=== PATIENT | female | born 1955 | race Two or more races ===

== ENCOUNTER → 2024-08-13 | Outpatient (CLI) | payer MEDICARE, MEDICAID, SELFPAY ==
--- NOTE | 2024-08-13 10:35 | XR_ITS ---
Examination: Bilateral os calcis 4 views TECHNIQUE: Axial lateral right and left os calcis 2 views Exam date and time: August 13, 2024 1055 hours INDICATIONS: Bilateral heel pain for years FINDINGS: Moderate osteopenia Soft tissue vascular calcification 7 mm left plantar bony calcaneal spur 4 mm right plantar bony calcaneal spur No cortical bone destruction IMPRESSION: Plantar bony calcaneal spurs as above
--- NOTE | 2024-08-13 10:35 | XR_ITS ---
Examination: Foot bilateral, 6 views Technique: AP, oblique, lateral views each foot total 6 views Date and time of exam: August 13, 2024 1055 hours INDICATIONS: Foot pain for years worse the last year FINDINGS: Moderate osteopenia Mild bunion deformity right foot with moderate osteoarthritis right first metatarsophalangeal joint No fracture Mild bunion deformity left foot with moderate osteoarthritis first metatarsophalangeal joint Please see the bilateral ankle reports No acute fracture no dislocation IMPRESSION: Bilateral mild bunion deformities Bilateral moderate osteoarthritis first metatarsophalangeal joints
--- NOTE | 2024-08-13 10:35 | XR_ITS ---
Examination: Ankle Bilateral, 6 views Technique: AP oblique lateral each ankle total 6 views INDICATIONS: Increasing ankle pain the last 4 years Date and time of exam: August 13, 2024 1055 hours Findings: Moderate osteopenia Moderate osteoarthritis right tibiotalar joint 5 mm plantar 2 mm posterior right bony calcaneal spurs Mild osteoarthritis left tibiotalar joint 7 mm left plantar bony calcaneal spur No fracture or dislocation involving either ankle IMPRESSION: Moderate osteoarthritis right tibiotalar joint Mild osteoarthritis left tibiotalar joint Calcaneal spurs as above
== END | disposition home or self-care (01) ==
LOC: CDIM 10:18
PROVIDERS: PCP Nurse Practitioner Family; Referring Provider Nurse Practitioner Family; Visit Provider Nurse Practitioner Family
DX: M19.072 Primary osteoarthritis, left ankle and foot (principal); M19.071 Primary osteoarthritis, right ankle and foot; M77.32 Calcaneal spur, left foot; M77.31 Calcaneal spur, right foot; M21.612 Bunion of left foot; M21.611 Bunion of right foot
CPT/HCPCS: 73610; 73630; 73650

== ENCOUNTER → 2024-09-17 | Outpatient (CLI) | payer MEDICARE, MEDICAID, SELFPAY ==
--- NOTE | 2024-09-17 11:00 | XR_ITS ---
Examination: Screening digital mammography, bilateral Computer aided detection 3-D breast Tomosynthesis, bilateral Date and time of exam: September 17, 2024 1055 hours Compared to mammograms dating to February 08, 2012 Indication: Screening Technique: Nonmagnified MLO, CC views of the breasts to been obtained, reconstructed from 3-D Tomosynthesis images. R2 computer aided detection program utilized for evaluation of suspicious masses and/or abnormal calcifications. 3-D Tomosynthesis images obtained. Findings: Scattered areas of fibroglandular density Benign calcifications No interval suspicious masses Impression: BI-RADS category II: Benign Findings. Recommend 1 year follow-up mammogram.
== END | disposition home or self-care (01) ==
LOC: CDIM 10:46
PROVIDERS: PCP Nurse Practitioner Family; Referring Provider Internal Medicine; Visit Provider Internal Medicine
DX: R92.323 Mammographic fibroglandular density, bilateral breasts (principal); R92.1 Mammographic calcification found on diagnostic imaging of breast
CPT/HCPCS: 77063; 77067

== ENCOUNTER 2024-10-02 10:48 | Emergency (ER) | payer MEDICARE, MEDICAID, SELFPAY ==
[2024-10-02 10:49] VITALS: BMI 35.9
[2024-10-02 11:00] VITALS: BP 151/79; PULSE 98; RESP 18; TEMP 37.2; O2SAT 97
--- NOTE | 2024-10-02 11:18 | XR_ITS ---
Examination: CTA abdominal aorta iliofemoral runoff. 2-D sagittal coronal reconstructions. 3-D reconstructions, vascular Exam date and time: October 02 2024 1230 hours INDICATIONS: Right lower leg pain paresthesias and numbness beginning 2 weeks ago Technique: Multiple CTA images of the abdominal aorta iliofemoral runoff arterial vessels, 2.0 mm slice thickness, post intravenous administration 130 cc [id number] 2-D sagittal coronal reconstructions. 3-D reconstructions, vascular 3-D postprocessing, including vascular maximum intensity projection images, 3-D volume rendering Low dose protocols were performed. One or more of the following dose reduction techniques were used; automated exposure control, adjustment of the mA and/or KV according to patient size, use of iterative reconstruction technique. Findings: No focal liver or splenic lesions Absent gallbladder No pancreatic or adrenal mass No renal or ureteral calculi, no hydronephrosis No bowel obstruction Normal appendix No diverticulitis Urinary bladder wall thickening up to 2 mm No pelvic mass No abdominal aortic aneurysmal dilatation No significant stenoses common iliac and external iliac or common femoral arteries Bilateral superficial femoral arteries are intact Bilateral posterior tibial arteries fill to the ankle There is no filling of the distal one third of both anterior tibial arteries which may relate to small vessel arterial sclerotic disease IMPRESSION: There is no filling of the distal one third of both anterior tibial arteries, which may relate to obstructive arterial disease Recommend correlation with repeat arterial Doppler sonography lower extremity arteries.
--- NOTE | 2024-10-02 11:19 | PD.EDLOWEX ---
Lower Extremity Injury RME/HPI General Chief Complaint: Extremity Injury, Lower Stated Complaint: Right lower foot/calf pain x 1 mo. Time Seen by Provider: 10/02/24 11:05 Arrival date/time: 10/02/24 10:48 RME / HPI RME / HPI Narrative: 69-year-old female patient Swiss-speaking, with significant history of fibromyalgia, came in for evaluation regarding right lower leg pain. Patient has been having pain to the right lower leg for more than a month, worse in the foot, with dusky discoloration, severity moderate. Patient was previously seen in this hospital about a year ago for chronic foot ulcer. The wound is completely healed now. Patient denies any fever denies any trauma denies any other complaints no medication was taken prior travel. Related Data Home Medications ?Medication ?Instructions ?Recorded ?Confirmed furosemide 20 mg tablet mg 08/06/23 metformin 500 mg tablet mg 08/06/23 Previous Rx's ?Medication ?Instructions ?Recorded duloxetine 60 mg capsule,delayed 60 mg PO QDAY #30 caps 08/07/23 release hydrocodone 5 mg-acetaminophen 325 1 tab PO Q8H PRN pain #10 tabs 08/07/23 mg tablet acetaminophen 300 mg-codeine 30 mg 1 tab PO BID PRN pain #20 tabs 10/02/24 tablet cilostazol 100 mg tablet 100 mg PO BID #60 tabs 10/02/24 Allergies Allergy/AdvReac Type Severity Reaction Status Date / Time No Known Allergies Allergy Verified 07/01/21 11:43 Review of Systems Review of Systems Narrative Review of Systems: Review of system reviewed and within normal limits except mentioned in HPI ED Exam Narrative Physical exam: VITAL SIGNS: Reviewed. GENERAL APPEARANCE: Alert and interactive, follows commands, no acute distress, HEAD AND FACE: Non-traumatic. ENT: PERRL, pink conjunctivitis, eyelid no trauma, Mucous membrane moist. NECK: Supple, nontender, no nuchal rigidity. CHEST: No tenderness, no crepitus, no paradoxical movement, no retractions. LUNGS: Clear, well ventilated, symmetric, no rales, no wheezing, no ronchi, no stridor, good breath sounds bilaterally. HEART: Regular rate, regular rhythm, no murmur, no gallops. ABDOMEN: Soft, positive bowel sounds, nondistended, no guarding, nontender, no rebound, no masses, RECTAL: Deferred. GENITAL: Deferred. NEUROLOGICAL: Gross motor function intact sensory function intact, Appropriate for age. MUSCULOSKELETAL: low back nontender, full range of motion. EXTREMITIES: Right bilateral foot with dusky discoloration more on the plantar aspect, warm to touch, dorsalis pedis and posterior tibialis pulses barely palpable with tenderness, full range of motion. SKIN: Color pink, dry, no rash, no lacerations, no abrasions, no contusions. LYMPHATICS: Deferred. Course Quality Measures none Orders Category Date Time Status CT Screening NOW Care 10/02/24 11:19 Active IV [Insert IV] NOW Care 10/02/24 11:[address] angio abd ilio fem runoff Stat Exams 10/02/24 11:18 Completed CBC Stat Lab 10/02/24 11:43 Completed Comprehensive Metabolic Panel Stat Lab 10/02/24 11:43 Completed Partial Thromboplastin Time Stat Lab 10/02/24 11:43 Completed Prothrombin Time with INR Stat Lab 10/02/24 11:43 Completed Urinalysis, C/S if Indicated Stat Lab 10/02/24 12:28 Completed Ketorolac Inj [Toradol Inj] Med 10/02/24 14:23 Discontinued 30 mg IVP X1 ONE Vital Signs Vital signs: Vital Signs Temperature 98.9 F 10/02/24 11:00 Pulse Rate 98 10/02/24 11:00 Respiratory Rate 18 10/02/24 11:00 Blood Pressure 151/79 H 10/02/24 11:00 Pulse Oximetry (%) 97 10/02/24 11:00 Oxygen Delivery Method Room Air 10/02/24 11:00 Extremity Injury, Lower MDM Narrative MDM Narrative:: 69-year-old female patient Swiss-speaking, with significant history of fibromyalgia, came in for evaluation regarding right lower leg pain. Patient has been having pain to the right lower leg for more than a month, worse in the foot, with dusky discoloration, severity moderate. Patient was previously seen in this hospital about a year ago for chronic foot ulcer. The wound is completely healed now. Patient denies any fever denies any trauma denies any other complaints no medication was taken prior travel. Patient's workup today all came back unremarkable except for the CT angiogram with iliofemoral runoff that showed There is no filling of the distal one third of both anterior tibial arteries, which may relate to obstructive arterial disease Recommend correlation with repeat arterial Doppler sonography lower extremity arteries. Results discussed with the patient and family and was given a copy of her CT angiogram of the abdomen and pelvis. Patient was strongly advised to follow-up with PCP in the morning and for referral to vascular surgeon for further management. There is no need to do emergency room. Since patient has been having symptoms for more than a month. And patient is not having acute gangrene or cyanosis of the foot or lower extremities. Patient data External records reviewed:: None Clinical information provided by:: patient Social determinants that could affect healthcare access:: none Patient has the following chronic illnesses:: Fibromyalgia How is presenting disease/condition affected by chronic disease/condition?: exacerbated by Evaluation data The following diagnostics were reviewed and interpreted by me:: lab results and radiology exam(s) Lab and/or radiology exams considered but not ordered:: None Interpretation Summary: See results in MDM Medications / Prescriptions Medications or Prescriptions considered but not ordered:: None Medication administrations:: Medication Administration History Discontinued Medications Ketorolac Tromethamine (Ketorolac Inj 30 Mg/Ml Vial) 30 mg IVP X1 ONE Stop: 10/02/24 14:24 Toradol Iv Consultations Consultation(s) initiated? (list below): No Diagnosis Extremity Injury, Lower Differential Diagnosis: other (Peripheral arterial disease, peripheral arterial occlusive disease, Raynaud's disease) Most likely diagnosis given after review of the tests above:: Peripheral arterial occlusive disease Admission Indicated Admission indicated?: not indicated Explain why admission is indicated or not indicated:: Stable Admission Request Was there a request for admission?: No Disposition Plan Disposition Plan: Discharge Discharge Attestation Discharge Attestation: The patient and all family members were given an opportunity to ask questions and understood the discharge instructions. Discharge instructions specifically effects, indications for sooner follow up or return to the emergency department, and the expected course of current diagnosis. Patient condition: Stable Discharge Plan Plan Patient Disposition: HOME (Self Care) Disposition Comment: Stable Prescriptions/Referrals Prescriptions/Med Rec: New cilostazol 100 mg tablet 100 mg PO BID Qty: 60 0RF acetaminophen-codeine 300-30 mg tablet 1 tab PO BID PRN (Reason: pain) Qty: 20 0RF No Action metformin 500 mg tablet Patient Comments: JOCELYNE EVANS VECES AL D A furosemide 20 mg tablet duloxetine 60 mg Capsule,Delayed Release(Dr/Ec) 60 mg PO QDAY Qty: 30 0RF hydrocodone-acetaminophen 5-325 mg tablet 1 tab PO Q8H MDD 3 tabs PRN (Reason: pain) Qty: 10 0RF Referrals: Diana Bullard [employer]ILITY RENTAL CLERK [Primary Care Provider] - In 1 week Problem List Clinical Impression: PAOD (peripheral arterial occlusive disease) Patient/Caregiver Discharge Instructions Discharge Activity: activity as tolerated Education Materials: PAD Cilostazol Additional Instructions: Thank you for the opportunity for serving you today. You are stable for discharged . You are advised to: Follow-up with your PCP in 1 to 2 days and as per referral to vascular surgeon Return to ED for worsening of symptoms Increase oral fluids Take medication as prescribed Print Language: Swiss Stand Alone Forms: Alise Award Info., Patient Portal Info Letter PA/OVERHEAD CRANE OPERATOR Supervising Physician PA/DESMOND Supervising Physician: MD Tip
[2024-10-02 12:05] LABS: Basophils # (Auto) 0.1 Thou/mm3 (0.0-0.2); Basophils % (Auto) 1 % (0-2.5); Eosinophils # (Auto) 0.1 Thou/mm3 (0.0-0.5); Eosinophils % (Auto) 1 % (0-10); Hematocrit 42.8 % (36.0-46.0); Hemoglobin 14.2 g/dL (12.0-16.0); Immature Granulocytes % (Auto) 0 % (0-0); Immature Granulocytes Auto 0.03 Thou/mm3 (0.00-0.00); Lymphocytes # (Auto) 3.2 Thou/mm3 (1.0-4.8); Lymphocytes % (Auto) 31 % (10-50); Mean Corpuscular HGB Conc 33.2 g/dl (31.0-37.0); Mean Corpuscular Hemoglobin 30.7 pg (25.0-35.0); Mean Corpuscular Volume 92 fL (80-100); Monocytes # (Auto) 0.7 Thou/mm3 (0.0-0.8); Monocytes % (Auto) 6 % (0-12); Neutrophils # (Auto) 6.3 Thou/mm3 (1.8-7.7); Neutrophils % (Auto) 61 % (37-80); Nucleated Red Blood Cell % 0 /100 WBC (0); Platelet Count 389 Thou/mm3 (140-440); RDW Standard Deviation 53.2 fL (36.4-46.3); Red Blood Count 4.63 Miln/mm3 (4.00-5.20); White Blood Count 10.4 Thou/mm3 (3.6-11.0)
[2024-10-02 12:24] LABS: Alanine Aminotransferase 28 U/L (10-49); Albumin, Serum 4.4 gm/dL (3.4-4.8); Albumin/Globulin Ratio 1.8 (1.2-2.2); Alkaline Phosphatase 79 U/L (46-116); Anion Gap 7 (7-16); Aspartate Amino Transferase 27 U/L (0-34); BUN/Creatinine Ratio 17 Ratio (12-20); Bilirubin,Total 0.3 mg/dL (0.3-1.2); Blood Urea Nitrogen 10 mg/dL (9-23); Calcium 9.3 mg/dL (8.3-10.6); Calcium (Corrected) 9.3 mg/dL (8.5-10.1); Chloride 103 mMol/L (98-107); Creatinine (Component) 0.6 mg/dL (0.6-1.3); Estimated Creatinine Clearance 85.7 mL/min (>60); Globulin 2.5 gm/dL (2.3-3.5); Glucose 160 mg/dL (74-106); Osmolality,Calculated 281 (275-295); Potassium 3.8 mMol/L (3.4-5.1); Sodium 140 mMol/L (136-145); Total Protein 6.9 gm/dL (5.7-8.2); eGFR > 60 See Note
[2024-10-02 12:33] LABS: Collection Type, Urine Clean Catch
[2024-10-02 12:43] LABS: Partial Thromboplastin Time 26.2 Seconds (22.0-36.0)
[2024-10-02 12:44] LABS: Bilirubin,Urine Negative (Negative); Blood,Urine Negative (Negative); Clarity,Urine Clear (Clear/Hazy); Color,Urine Lt-Yellow (Lt Yel-Yel); Culture Indicated,Urine Not Indicated; Glucose, Urine Negative (Negative); Ketones,Urine Negative (Negative); Leukocyte Esterase,Urine Negative (Negative); Nitrite,Urine Negative (Negative); Protein,Urine Negative (Neg - Trace); RBC,Urine 2 /hpf (0-3); Specific Gravity,Urine 1.006 (1.001-1.035); Squamous Epithelial Cell,Urine 2 /hpf (0-5); Urobilinogen,Urine Negative mg/dL (0.0-1.0); WBC,Urine 1 /hpf (0-5)
[2024-10-02] MEDS: KETOROLAC INJ 30 MG/ML VIAL IVP (14:35)
== END 2024-10-02 15:06 | disposition home or self-care (01) ==
PROVIDERS: Nurse Practitioner Family; Emergency Provider Emergency Medicine; PCP Nurse Practitioner Family
DX: I73.9 Peripheral vascular disease, unspecified (principal)
CPT/HCPCS: 36415; 75635; 80053; 81001; 85025; 85610; 85730; 96374; 99285; A4649; J1885; Q9967

== ENCOUNTER → 2024-10-03 | Outpatient (CLI) | payer MEDICARE, MEDICAID, SELFPAY ==
--- NOTE | 2024-10-03 13:12 | XR_ITS ---
Examination: Venous duplex lower extremity sonogram, bilateral. Date and time of exam: October 03, 2024 1403 hours INDICATIONS: Bilateral leg pain beginning one year ago Technique: Multiple sonographic images of the deep venous system have been obtained. B-mode/2-D grayscale imaging of vascular structures and Doppler spectral analysis (waveforms) and color performed Both legs are examined. Findings: Deep venous systems do not demonstrate abnormal echogenicity. All visualized deep veins exhibit compressibility. All visualized deep veins exhibit augmentation. Impression: Negative for deep vein thrombosis
--- NOTE | 2024-10-03 13:18 | XR_ITS ---
Examination: Arterial duplex lower extremity study. Date and time of exam: October 13, 2024 1347 hours INDICATIONS: Bilateral leg pain beginning one year ago Findings: Duplex sonographic imaging of the lower extremity arteries using B-mode/Martines scale imaging and Doppler spectral analysis and color flow. Ankle brachial indices have been recorded. Right common femoral artery demonstrates triphasic flow. Right superficial femoral artery demonstrates triphasic flow. Right popliteal artery demonstrates triphasic flow. Right posterior tibial artery demonstrated triphasic flow. Right ankle/brachial index is 1.0. Left common femoral artery demonstrates triphasic flow. Left superficial femoral artery demonstrates triphasic flow. Left popliteal artery demonstrates triphasic flow. Left posterior tibial artery demonstrated biphasic flow. Left ankle/brachial index is 1.0. Impression: Negative study
== END | disposition home or self-care (01) ==
PROVIDERS: PCP Nurse Practitioner Family; Referring Provider Nurse Practitioner Family; Visit Provider Nurse Practitioner Family
DX: R22.43 Localized swelling, mass and lump, lower limb, bilateral (principal); I73.9 Peripheral vascular disease, unspecified
CPT/HCPCS: 93922; 93970

== ENCOUNTER 2024-11-10 10:33 | Emergency (ER) | payer MEDICARE, MEDICAID, SELFPAY ==
[2024-11-10 10:35] VITALS: BMI 35.5
--- NOTE | 2024-11-10 10:55 | XR_ITS ---
Examination: PA lateral chest 2 views TECHNIQUE: Upright PA lateral chest 2 views Exam date and time: November 11, 2019 5:11 AM INDICATIONS: Chest pain beginning 4 days ago FINDINGS: Normal heart size. Lungs are clear. Right shoulder reverse shoulder arthroplasty IMPRESSION: No active disease
--- NOTE | 2024-11-10 10:55 | EKG_ITS ---
[facility] Test Date: 2024-11-10 Pat Name: URBANO RUTHERFORD Department: Room: - Gender: Female Hand Laster: : 1955 Requested By: Mario Morris Order Number: [id number] Reading MD: Mario Morris Measurements Intervals Rhodelia Rate: 57 P: 50 CO: 140 QRS: -20 QRSD: 89 T: 41 QT: 431 QTc: 422 Interpretive Statements SINUS BRADYCARDIA Compared to ECG 04/07/2019 09:26:40 Sinus rhythm no longer present /store/S0/[id number].pdf
--- NOTE | 2024-11-10 10:55 | PD.EDRME ---
Rapid Medical Screening Exam RME Arrival date/time: 11/10/24 10:33 69-year-old female with a history of type 2 diabetes, fibromyalgia presents to the emergency room with a chief complaint of 10 out of 10 sternal chest pain that radiates to the bilateral shoulders x 1 day. I have greeted and performed a focused initial assessment of this patient. A comprehensive ED assessment and evaluation of the patient, analysis of all test results, and completion of the medical decision making process will be conducted by additional ED providers. Chief Complaint: Chest Pain Vital signs reviewed by provider: Yes
[2024-11-10 11:08] VITALS: BP 135/73; PULSE 63; RESP 19; TEMP 37.2; O2SAT 96
[2024-11-10 11:44] LABS: Basophils # (Auto) 0.1 Thou/mm3 (0.0-0.2); Basophils % (Auto) 0 % (0-2.5); Eosinophils # (Auto) 0.2 Thou/mm3 (0.0-0.5); Eosinophils % (Auto) 1 % (0-10); Hemoglobin 13.8 g/dL (12.0-16.0); Immature Granulocytes % (Auto) 0 % (0-0); Immature Granulocytes Auto 0.07 Thou/mm3 (0.00-0.00); Lymphocytes # (Auto) 3.9 Thou/mm3 (1.0-4.8); Lymphocytes % (Auto) 25 % (10-50); Mean Corpuscular HGB Conc 32.1 g/dl (31.0-37.0); Mean Corpuscular Hemoglobin 30.2 pg (25.0-35.0); Mean Corpuscular Volume 94 fL (80-100); Monocytes # (Auto) 1.2 Thou/mm3 (0.0-0.8); Monocytes % (Auto) 8 % (0-12); Neutrophils # (Auto) 10.3 Thou/mm3 (1.8-7.7); Neutrophils % (Auto) 66 % (37-80); Nucleated Red Blood Cell % 0 /100 WBC (0); Platelet Count 396 Thou/mm3 (140-440); RDW Standard Deviation 50.6 fL (36.4-46.3); Red Blood Count 4.57 Miln/mm3 (4.00-5.20); White Blood Count 15.7 Thou/mm3 (3.6-11.0)
[2024-11-10 11:50] LABS: Partial Thromboplastin Time 25.5 Seconds (22.0-36.0); Prothrombin Time 10.9 Seconds (9.0-12.2)
[2024-11-10 11:53] LABS: B-Type Natriuretic Peptide 50 pg/mL (0-100)
[2024-11-10 11:55] LABS: Alanine Aminotransferase 26 U/L (10-49); Albumin, Serum 4.5 gm/dL (3.4-4.8); Alkaline Phosphatase 109 U/L (46-116); Anion Gap 7 (7-16); Aspartate Amino Transferase 26 U/L (0-34); BUN/Creatinine Ratio 27 Ratio (12-20); Bilirubin,Total 0.6 mg/dL (0.3-1.2); Blood Urea Nitrogen 16 mg/dL (9-23); Calcium 9.1 mg/dL (8.3-10.6); Calcium (Corrected) 9.1 mg/dL (8.5-10.1); Carbon Dioxide 30.7 mMol/L (20.0-31.0); Chloride 103 mMol/L (98-107); Creatinine (Component) 0.6 mg/dL (0.6-1.3); Estimated Creatinine Clearance 85.2 mL/min (>60); Globulin 2.3 gm/dL (2.3-3.5); Glucose 86 mg/dL (74-106); LDH (Lactate Dehydrogenase) 221 U/L (120-246); Magnesium 2.1 mg/dL (1.6-2.6); Osmolality,Calculated 281 (275-295); Potassium 3.6 mMol/L (3.4-5.1); Sodium 141 mMol/L (136-145); Total Protein 6.8 gm/dL (5.7-8.2); Troponin I < 0.020 ng/mL (0.0-0.045); eGFR > 60 See Note
[2024-11-10 12:29] LABS: Collection Type, Urine Clean Catch
[2024-11-10 12:49] LABS: Bilirubin,Urine Negative (Negative); Blood,Urine Negative (Negative); Clarity,Urine Clear (Clear/Hazy); Color,Urine Drk-Yellow (Lt Yel-Yel); Glucose, Urine Negative (Negative); Ketones,Urine Trace (Negative); Leukocyte Esterase,Urine Positive (Negative); Nitrite,Urine Negative (Negative); PH,Urine 6.5 (5.0-7.0); Protein,Urine 1+ (Neg - Trace); RBC,Urine 8 /hpf (0-3); Specific Gravity,Urine 1.035 (1.001-1.035); Squamous Epithelial Cell,Urine 2 /hpf (0-5); WBC,Urine 4 /hpf (0-5)
[2024-11-10 16:00] VITALS: BP 129/71; PULSE 54; RESP 20; TEMP 36.6; O2SAT 95
--- NOTE | 2024-11-10 16:32 | PD.EDCHEST ---
ED Chest Pain RME/HPI General Chief Complaint: Chest Pain Stated Complaint: CHEST PAIN Arrival date/time: 11/10/24 10:33 RME / HPI RME / HPI narrative: 11/10/24 10:33 69-year-old female with a history of type 2 diabetes, fibromyalgia presents to the emergency room with a chief complaint of 10 out of 10 sternal chest pain that radiates to the bilateral shoulders x 1 day. I have greeted and performed a focused initial assessment of this patient. A comprehensive ED assessment and evaluation of the patient, analysis of all test results, and completion of the medical decision making process will be conducted by additional ED providers. DR. SCHWARZ MAIN ED EVALUATION: 69 year old female presents to the Emergency Department accompanied by her with complaint of chest pain prior to arrival that lasted 45 minutes. Pain has resolved but now has generalized weakness. Pain radiated to her back and was described as aching. No radiation to the shoulders or arms. Denies any acid reflux. No nausea, vomiting, diarrhea, or constipation. No fevers, chills, or sweating. No shortness of breath. No dysuria or other urinary symptoms. PMHx: Fibromyalgia takes cymbalta and also takes clonazepam to sleep. Denies history of hypertension or diabetes. Social Hx: No tobacco, alcohol, or substance use. Related Data Home Medications ?Medication ?Instructions ?Recorded ?Confirmed furosemide 20 mg tablet mg 08/06/23 metformin 500 mg tablet mg 08/06/23 Previous Rx's ?Medication ?Instructions ?Recorded duloxetine 60 mg capsule,delayed 60 mg PO QDAY #30 caps 08/07/23 release hydrocodone 5 mg-acetaminophen 325 1 tab PO Q8H PRN pain #10 tabs 08/07/23 mg tablet acetaminophen 300 mg-codeine 30 mg 1 tab PO BID PRN pain #20 tabs 10/02/24 tablet cilostazol 100 mg tablet 100 mg PO BID #60 tabs 10/02/24 Allergies Allergy/AdvReac Type Severity Reaction Status Date / Time No Known Allergies Allergy Verified 07/01/21 11:43 Review of Systems Review of Systems Systems Reviewed: All systems reviewed, normal except as documented Past Medical History Past Medical History CARDIAC: Positive Varicose Veins GASTROINTESTINAL: Positive Gastrointestinal Disorders, Gall Bladder Disease and Obesity REPRODUCTIVE: Positive Previous Pregnancies MUSCULOSKELETAL: Positive Musculoskeletal Disorders and Fibromyalgia ENT: Positive Cataracts PSYCHO/SOCIAL: Positive Depression and Anxiety OTHER HISTORY: Positive Shingles Surgical History SURGICAL: Positive Tonsillectomy, Abdominal Surgery, Hysterectomy, Tubal Ligation and Section Social History SMOKING STATUS: Never smoker SUBSTANCE USE: does not use ALCOHOL: Never ED Exam Narrative Physical exam: GENERAL APPEARANCE: alert and oriented x 4, well-developed, well-nourished, no acute distress VITALS: All vitals were reviewed and the pulse ox is 96% on room air, which is normal according to my interpretation. HEENT: Normocephalic, atraumatic; pupils equal, round, reactive to light; EOMI; mucous membranes pink, moist; oropharynx clear NECK: Supple LUNGS: CTABL; no wheezes, no rales, no rhonchi HEART: Regular rate, regular rhythm; normal S1, S2; no murmurs ABDOMEN: non distended; normal BS; soft, no tenderness, no guarding, no rebound; no masses, no organomegaly, no hernia BACK: no CVA tenderness EXTREMITIES: atraumatic; no edema NEUROLOGIC: awake; alert and oriented x4; cranial nerves II-XII grossly intact; no focal sensory or motor deficits PSYCHIATRIC: appropriate mood and affect SKIN: warm, dry, normal color; no rashes Course Quality Measures none Orders Category Date Time Status Bedside COVID-19 Antigen Test NOW Care 11/10/24 12:40 Active Bedside Influenza A&B Antigen Test NOW Care 11/10/24 12:40 Completed EKG (ED ONLY) *Do not use* NOW Care 11/10/24 10:55 Completed EKG (ED Only) Stat Exams 11/10/24 10:55 Draft XR chest 2V Stat Exams 11/10/24 10:55 Completed B-Type Natriuretic Peptide Stat Lab 11/10/24 11:21 Completed CBC Stat Lab 11/10/24 11:21 Completed Comprehensive Metabolic Panel Stat Lab 11/10/24 11:21 Completed LDH (Lactate Dehydrogenase) Stat Lab 11/10/24 11:21 Completed Magnesium Stat Lab 11/10/24 11:21 Completed Partial Thromboplastin Time Stat Lab 11/10/24 11:21 Completed Procalcitonin Stat Lab 11/10/24 11:21 Completed Prothrombin Time with INR Stat Lab 11/10/24 11:21 Completed Troponin I Stat Lab 11/10/24 11:21 Completed Urinalysis Stat Lab 11/10/24 12:17 Completed Vital Signs Vital signs: Vital Signs Temperature 99.0 F 11/10/24 11:08 Pulse Rate 63 11/10/24 11:08 Respiratory Rate 19 11/10/24 11:08 Blood Pressure 135/73 H 11/10/24 11:08 Pulse Oximetry (%) 96 11/10/24 11:08 Oxygen Delivery Method Room Air 11/10/24 11:08 Chest Pain MDM Narrative MDM Narrative:: Ana Byrne am scribing for and in the presence of Dr. Schwarz. Patient data External records reviewed:: [facility] previous records (Reviewed last ED visit dated 10/02/24, discharged with the following: PAOD (peripheral arterial occlusive disease).) Clinical information provided by:: patient and family () Social determinants that could affect healthcare access:: none Patient has the following chronic illnesses:: Fibromyalgia takes cymbalta and also takes clonazepam to sleep. Denies history of hypertension or diabetes. How is presenting disease/condition affected by chronic disease/condition?: exacerbated by Evaluation data The following diagnostics were reviewed and interpreted by me:: lab results, radiology exam(s) and EKG tracing(s) (EKG#1: EKG at 1103 hours. Interpreted by me: sinus bradycardia, rate 57, T wave inversion in V1) Lab and/or radiology exams considered but not ordered:: none Interpretation Summary: Procedure(s): XR chest 2V Accession Number(s): [id number] cc: Mario Antonio; Artis Meier MD~ Examination: PA lateral chest 2 views TECHNIQUE: Upright PA lateral chest 2 views Exam date and time: November 11, 2019 5:11 AM INDICATIONS: Chest pain beginning 4 days ago FINDINGS: Normal heart size. Lungs are clear. Right shoulder reverse shoulder arthroplasty IMPRESSION: No active disease Dictated By: Artis Meier MD Medications / Prescriptions Medications or Prescriptions considered but not ordered:: none Medication administrations:: see above if any Consultations Consultation(s) initiated? (list below): No Diagnosis Chest Pain Differential Diagnosis: atypical chest pain, costochondritis, chest pain and biliary colic Most likely diagnosis given after review of the tests above:: Atypical chest pain Leukocytosis Admission Indicated Admission indicated?: not indicated Admission Request Was there a request for admission?: No Disposition Plan Disposition Plan: Discharge Discharge Attestation Discharge Attestation: The patient and all family members were given an opportunity to ask questions and understood the discharge instructions. Discharge instructions specifically effects, indications for sooner follow up or return to the emergency department, and the expected course of current diagnosis. Patient condition: Stable Discharge Plan Plan Patient Disposition: HOME (Self Care) Prescriptions/Referrals Prescriptions/Med Rec: No Action metformin 500 mg tablet Patient Comments: JOCELYNE KEYESA NATHAN VECES AL D A furosemide 20 mg tablet duloxetine 60 mg Capsule,Delayed Release(Dr/Ec) 60 mg PO QDAY Qty: 30 0RF hydrocodone-acetaminophen 5-325 mg tablet 1 tab PO Q8H MDD 3 tabs PRN (Reason: pain) Qty: 10 0RF cilostazol 100 mg tablet 100 mg PO BID Qty: 60 0RF acetaminophen-codeine 300-30 mg tablet 1 tab PO BID PRN (Reason: pain) Qty: 20 0RF Referrals: Diana Bullard LOCOMOTIVE MECHANIC APPRENTICE [Primary Care Provider] - In 1 week Problem List Clinical Impression: Atypical chest pain, Leukocytosis Patient/Caregiver Discharge Instructions Education Materials: ED Chest Pain, Uncertain Cause Print Language: Lao Stand Alone Forms: Alise Award Info., Patient Portal Info Letter
[2024-11-10 16:47] LABS: Procalcitonin 0.04 ng/ml (0.0-0.49)
[2024-11-10 17:03] VITALS: BP 129/71; PULSE 53; RESP 15; TEMP 36.4; O2SAT 96
== END 2024-11-10 17:44 | disposition home or self-care (01) ==
PROVIDERS: Nurse Practitioner Family; Emergency Provider Emergency Medicine; PCP Nurse Practitioner Family
DX: R07.89 Other chest pain (principal); D72.829 Elevated white blood cell count, unspecified; M79.7 Fibromyalgia; E11.9 Type 2 diabetes mellitus without complications
CPT/HCPCS: 36415; 71046; 80053; 81001; 83615; 83735; 83880; 84145; 84484; 85025; 85610; 85730; 87400; 87811; 93005; 99283

== ENCOUNTER 2025-01-22 20:39 | Emergency (ER) | payer MEDICARE, SELFPAY ==
[2025-01-22 21:29] VITALS: BP 137/78; PULSE 65; RESP 16; TEMP 36.8; O2SAT 95
[2025-01-22] MEDS: GABAPENTIN 300 MG CAPSULE PO (22:06)
[2025-01-22] MEDS: HYDROcodone/APAP 5/325 TABLET 1 TAB PO (22:06)
--- NOTE | 2025-01-23 04:52 | EDNOTE_ITS ---
<Statement entered by Gale Schwarz MD - 01/23/25 05:50> As co-signing physician, I was present and available for consult prn. I concur with the plan and care as documented by the midlevel provider. Lower Extremity Injury RME/HPI General Chief Complaint: Ankle/Foot Injury Stated Complaint: RIGHT FOOT PAIN Time Seen by Provider: 01/22/25 21:49 Arrival date/time: 01/22/25 20:39 69F with history of DM presents to ED with R foot pain w/o fall/trauma. Patient states she had surgery on that foot 1 year ago to remove a bone spur. Patient states she doesn't want any tests as she's already had work-up and a treatment plan. Patient just wants meds. Limitations: no limitations Related Data Home Medications ?Medication ?Instructions ?Recorded ?Confirmed furosemide 20 mg tablet mg 08/06/23 metformin 500 mg tablet mg 08/06/23 Previous Rx's ?Medication ?Instructions ?Recorded duloxetine 60 mg capsule,delayed 60 mg PO QDAY #30 cap s 08/07/23 release hydrocodone 5 mg-acetaminophen 325 1 tab PO Q8H PRN pa in #10 tabs 08/07/23 mg tablet acetaminophen 300 mg-codeine 30 mg 1 tab PO BID PRN pa in #20 tabs 10/02/24 tablet cilostazol 100 mg tablet 100 mg PO BID #60 tabs 10/02 Allergies Allergy/AdvReac Type Severity Reaction Status Date / Time No Known Allergies Allergy Verified 01/22/25 20:41 Review of Systems Review of Systems Systems Reviewed: All systems reviewed, normal except as documented Constitutional Constitutional: Reports system reviewed and no additional complaints, except as documented, Denies fever(s) and Denies headache(s) ENT Ears, Nose, Mouth, and Throat: Denies disequilibrium and Denies headache(s) Cardiovascular Cardiovascular: Reports system reviewed and no additional complaints, except as documented, Denies chest pain and Denies dyspnea Respiratory Respiratory: Reports system reviewed and no additional complaints, except as documented, Denies cough and Denies dyspnea Gastrointestinal Gastrointestinal: Reports system reviewed and no additional complaints, except as documented, Denies abdominal pain, Denies nausea and Denies vomiting Musculoskeletal Musculoskeletal: Reports as per HPI and Reports arthralgias Neurologic Neurologic: Reports system reviewed and no additional complaints, except as documented, Denies confusion, Denies disequilibrium and Denies headache(s) Psychiatric Psychiatric: Denies confusion Past Medical History Past Medical History NEUROLOGIC: Negative Neurological Disorders or Seizures CARDIAC: Positive Varicose Veins; Negative Cardiac Disorders or Congestive Heart Failure RESPIRATORY: Negative Chronic Obstructive Pulmonary Disease (COPD) or Asthma GASTROINTESTINAL: Positive Gastrointestinal Disorders, Gall Bladder Disease and Obesity GENITOURINARY: Negative Genitourinary Disorders or Renal Disease REPRODUCTIVE: Positive Previous Pregnancies MUSCULOSKELETAL: Positive Musculoskeletal Disorders and Fibromyalgia ENT: Positive Cataracts ENDOCRINE: Negative Endocrine Disorders, Diabetes Mellitus Type 1 or Diabetes Mellitus Type 2 HEMATOLOGIC: Negative Blood Disorders or Sickle Cell Disease PSYCHO/SOCIAL: Positive Depression and Anxiety OTHER HISTORY: Positive Shingles; Negative Hospitalization, Autoimmune Disease, Falls, Blood Transfusions, Blood Transfusion Reaction, Anesthesia Reactions, Chemotherapy, Radiation Therapy or Cancer Family History FAMILY HISTORY: Negative Family Psychiatric Problems, Family Respiratory Disorders, Family Cardiac Disorders, Family Gastrointestinal Problems, Family Cancer, Family Surgery or Family Anesthesia Reaction Surgical History SURGICAL: Positive Tonsillectomy, Abdominal Surgery, Hysterectomy, Tubal Ligation and Section; Negative Cardiac Surgery, Endocrine Surgery, Ear Surgery, Nephrectomy or Joint Replacement Social History SMOKING STATUS: Never smoker SUBSTANCE USE: does not use ED Exam General Limitations: Present no limitations General appearance: Present alert and in no apparent distress Head Head exam: Present atraumatic Eye Eye exam: Present normal appearance, PERRL and EOMI ENT ENT exam: Present normal exam, normal oropharynx and mucous membranes moist Neck Neck exam: Present normal inspection, full ROM and trachea midline Chest Chest inspection: Present normal inspection and symmetric chest wall rise Respiratory Respiratory exam: Present normal lung sounds bilaterally Cardiovascular Cardiovascular exam: Present regular rate, normal rhythm and normal heart sounds Abdominal Exam Abdominal exam: Present soft and normal bowel sounds Extremities Exam Extremities exam: Present normal inspection and full ROM Back Exam Back exam: Present normal inspection and full ROM Neurological Exam Neurological exam: Present alert, oriented X3 and CN II-XII intact Psychiatric Psychiatric exam: Present normal affect and normal mood Skin Skin exam: Present warm, dry, intact and normal color Course Quality Measures none Orders Category Date Time Status Gabapentin [Neurontin] Med 01/22/25 21:50 Discontinued 300 mg PO X1 ONE HYDROcodone*/APAP 5/325 [[place] 5/325] Med 01/22/25 21:50 Discontinued 1 tab PO X1 ONE Vital Signs Vital signs: Vital Signs Temperature 98.2 F 01/22/25 21:29 Pulse Rate 65 01/22/25 21:29 Respiratory Rate 16 01/22/25 21:29 Blood Pressure 137/78 H 01/22/25 21:29 Pulse Oximetry (%) 95 01/22/25 21:29 Oxygen Delivery Method Room Air 01/22/25 21:29 O2 at 95% on RA and WNLs Extremity Injury, Lower MDM Narrative MDM Narrative:: 69F with history of DM presents to ED with R foot pain w/o fall/trauma. Patient states she had surgery on that foot 1 year ago to remove a bone spur. Patient states she doesn't want any tests as she's already had work-up and a treatment plan. Patient just wants meds. Physical exam reveals normal R foot exam. No redness, tenderness, or swelling. Patient is afebrile, calm, and alert. Meds given. Patient data External records reviewed:: [facility] previous records Clinical information provided by:: patient Social determinants that could affect healthcare access:: none Patient has the following chronic illnesses:: DM How is presenting disease/condition affected by chronic disease/condition?: exacerbated by Evaluation data The following diagnostics were reviewed and interpreted by me:: other (specify) (none) Lab and/or radiology exams considered but not ordered:: not ordered Interpretation Summary: n/a Medications / Prescriptions Medications or Prescriptions considered but not ordered:: ordered Medication administrations:: Medication Administration History Discontinued Medications Hydrocodone Bitart/Acetaminophen (Hydrocodone/Apap 5/325 Tablet) 1 tab PO X1 ONE Stop: 01/22/25 21:51 Last Admin: 01/22/25 22:06 Dose: 1 tab Documented By: Gabapentin (Gabapentin 300 Mg Capsule) 300 mg PO X1 ONE Stop: 01/22/25 21:51 Last Admin: 01/22/25 22:06 Dose: 300 mg Documented By: above Consultations Consultation(s) initiated? (list below): No Diagnosis Extremity Injury, Lower Differential Diagnosis: ankle sprain and strain, acute internal derangement of knee, puncture wound of foot, fracture of toe, ankle fracture and other (foot pain) Most likely diagnosis given after review of the tests above:: foot pain Admission Indicated Admission indicated?: not indicated Admission Request Was there a request for admission?: No Disposition Plan Disposition Plan: Discharge Discharge Attestation Discharge Attestation: The patient and all family members were given an opportunity to ask questions and understood the discharge instructions. Discharge instructions specifically effects, indications for sooner follow up or return to the emergency department, and the expected course of current diagnosis. Patient condition: Stable Discharge Plan Plan Patient Disposition: HOME (Self Care) Discharge Disposition comment: Stable Prescriptions/Referrals Prescriptions/Med Rec: No Action metformin 500 mg tablet Patient Comments: JOCELYNE SOFIA TABLETA DOS VECES AL D A furosemide 20 mg tablet duloxetine 60 mg Capsule,Delayed Release(Dr/Ec) 60 mg PO QDAY Qty: 30 0RF hydrocodone-acetaminophen 5-325 mg tablet 1 tab PO Q8H MDD 3 tabs PRN (Reason: pain) Qty: 10 0RF cilostazol 100 mg tablet 100 mg PO BID Qty: 60 0RF acetaminophen-codeine 300-30 mg tablet 1 tab PO BID PRN (Reason: pain) Qty: 20 0RF Problem List Clinical Impression: Foot pain Patient/Caregiver Discharge Instructions Education Materials: ED Myalgias Additional Instructions: Please follow-up with PCP within 24-48 hours and return immediately if symptoms worsen. If problem persists, recommend outpatient PT and/or MRI follow-up. In the meantime, rest, use ice/heat, and/or compression. Print Language: Arabic Stand Alone Forms: Patient Portal Info Letter KATY/DESMOND Supervising Physician KATY/DESMOND Supervising Physician: Dr. Schwarz
== END 2025-01-22 22:10 | disposition home or self-care (01) ==
LOC: SERX 21:59
PROVIDERS: Emergency Provider Emergency Medicine; PCP Family Medicine
DX: M79.671 Pain in right foot (principal)
CPT/HCPCS: 99283; A9270

== ENCOUNTER 2025-02-26 21:24 | Emergency (ER) | payer MEDICARE, MEDICAID, SELFPAY ==
[2025-02-26 21:26] VITALS: BMI 34.4
[2025-02-26 22:09] VITALS: BP 132/88; PULSE 89; RESP 20; TEMP 36.9; O2SAT 95
--- NOTE | 2025-02-26 22:33 | XR_ITS ---
Examination: Tibia-Fibula, right , 2 views Technique: Tibia-fibula AP lateral 2 views Date and time of exam: February 26, 2025, 10:51 PM INDICATIONS: Injury to lower leg today, lower leg pain. FINDINGS: Edema medial lower leg No acute fracture No foreign body IMPRESSION: No acute fracture
--- NOTE | 2025-02-26 22:41 | PD.EDLOWEX ---
Lower Extremity Injury RME/HPI General Chief Complaint: Extremity Injury, Lower Stated Complaint: RIGHT LEG INJURY Time Seen by Provider: 02/26/25 22:32 Arrival date/time: 02/26/25 21:24 69F with history of PAD, fibromyalgia, and DM presents to ED with R lower leg pain after a melon fell on it. Limitations: no limitations Related Data Home Medications ?Medication ?Instructions ?Recorded ?Confirmed furosemide 20 mg tablet mg 08/06/23 metformin 500 mg tablet mg 08/06/23 Previous Rx's ?Medication ?Instructions ?Recorded duloxetine 60 mg capsule,delayed 60 mg PO QDAY #30 caps 08/07/23 release hydrocodone 5 mg-acetaminophen 325 1 tab PO Q8H PRN pain #10 tabs 08/07/23 mg tablet acetaminophen 300 mg-codeine 30 mg 1 tab PO BID PRN pain #20 tabs 10/02/24 tablet cilostazol 100 mg tablet 100 mg PO BID #60 tabs 10/02/24 Allergies Allergy/AdvReac Type Severity Reaction Status Date / Time No Known Allergies Allergy Verified 01/22/25 20:41 Review of Systems Review of Systems Systems Reviewed: All systems reviewed, normal except as documented Constitutional Constitutional: Reports system reviewed and no additional complaints, except as documented, Denies fever(s) and Denies headache(s) ENT Ears, Nose, Mouth, and Throat: Denies disequilibrium and Denies headache(s) Cardiovascular Cardiovascular: Reports system reviewed and no additional complaints, except as documented, Denies chest pain and Denies dyspnea Respiratory Respiratory: Reports system reviewed and no additional complaints, except as documented, Denies cough and Denies dyspnea Gastrointestinal Gastrointestinal: Reports system reviewed and no additional complaints, except as documented, Denies abdominal pain, Denies nausea and Denies vomiting Musculoskeletal Musculoskeletal: Reports as per HPI, Reports arthralgias and Reports joint swelling Neurologic Neurologic: Reports system reviewed and no additional complaints, except as documented, Denies confusion, Denies disequilibrium and Denies headache(s) Psychiatric Psychiatric: Denies confusion Past Medical History Past Medical History NEUROLOGIC: Negative Neurological Disorders or Seizures CARDIAC: Positive Varicose Veins; Negative Cardiac Disorders or Congestive Heart Failure RESPIRATORY: Negative Chronic Obstructive Pulmonary Disease (COPD) or Asthma GASTROINTESTINAL: Positive Gastrointestinal Disorders, Gall Bladder Disease and Obesity GENITOURINARY: Negative Genitourinary Disorders or Renal Disease REPRODUCTIVE: Positive Previous Pregnancies MUSCULOSKELETAL: Positive Musculoskeletal Disorders and Fibromyalgia ENT: Positive Cataracts ENDOCRINE: Negative Endocrine Disorders, Diabetes Mellitus Type 1 or Diabetes Mellitus Type 2 HEMATOLOGIC: Negative Blood Disorders or Sickle Cell Disease PSYCHO/SOCIAL: Positive Depression and Anxiety OTHER HISTORY: Positive Shingles; Negative Hospitalization, Autoimmune Disease, Falls, Blood Transfusions, Blood Transfusion Reaction, Anesthesia Reactions, Chemotherapy, Radiation Therapy or Cancer Family History FAMILY HISTORY: Negative Family Psychiatric Problems, Family Respiratory Disorders, Family Cardiac Disorders, Family Gastrointestinal Problems, Family Cancer, Family Surgery or Family Anesthesia Reaction Surgical History SURGICAL: Positive Tonsillectomy, Abdominal Surgery, Hysterectomy, Tubal Ligation and Section; Negative Cardiac Surgery, Endocrine Surgery, Ear Surgery, Nephrectomy or Joint Replacement Social History SMOKING STATUS: Never smoker SUBSTANCE USE: does not use ED Exam General Limitations: Present no limitations General appearance: Present alert and in no apparent distress Head Head exam: Present atraumatic Eye Eye exam: Present normal appearance, PERRL and EOMI ENT ENT exam: Present normal exam, normal oropharynx and mucous membranes moist Neck Neck exam: Present normal inspection, full ROM and trachea midline Chest Chest inspection: Present normal inspection and symmetric chest wall rise Respiratory Respiratory exam: Present normal lung sounds bilaterally Cardiovascular Cardiovascular exam: Present regular rate, normal rhythm and normal heart sounds Abdominal Exam Abdominal exam: Present soft and normal bowel sounds Extremities Exam Extremities exam: Present full ROM Expanded Lower Extremity Exam Lower leg exam: Present full ROM (R), tenderness, swelling and ecchymosis Back Exam Back exam: Present normal inspection and full ROM Neurological Exam Neurological exam: Present alert, oriented X3 and CN II-XII intact Psychiatric Psychiatric exam: Present normal affect and normal mood Skin Skin exam: Present warm, dry, intact and normal color Course Quality Measures none Orders Category Date Time Status XR tibia fibula RT 2V Stat Exams 02/26/25 22:33 Completed HYDROcodone*/APAP 5/325 [[place] 5/325] Med 02/26/25 22:35 Discontinued 1 tab PO X1 ONE Vital Signs Vital signs: Vital Signs Temperature 98.5 F 02/26/25 22:09 Pulse Rate 89 02/26/25 22:09 Respiratory Rate 20 02/26/25 22:09 Blood Pressure 132/88 H 02/26/25 22:09 Pulse Oximetry (%) 95 02/26/25 22:09 Oxygen Delivery Method Room Air 02/26/25 22:09 O2 at 95% on RA and WNLs Extremity Injury, Lower MDM Narrative MDM Narrative:: 69F with history of PAD, fibromyalgia, and DM presents to ED with R lower leg pain after a melon fell on it. Physical exam reveals R lower leg swelling, tenderness, and bruising (non-circumferential). R knee and R ankle ROM intact. Sensation intact. Patient is afebrile, calm, and alert. XR no fx. Meds and mitochondrial disorders counselor given including to watch for signs of compartment syndrome. Patient data External records reviewed:: [facility] previous records Clinical information provided by:: patient Social determinants that could affect healthcare access:: none Patient has the following chronic illnesses:: PAD, fibromyalgia, and DM How is presenting disease/condition affected by chronic disease/condition?: exacerbated by Evaluation data The following diagnostics were reviewed and interpreted by me:: radiology exam(s) Lab and/or radiology exams considered but not ordered:: ordered Interpretation Summary: above Medications / Prescriptions Medications or Prescriptions considered but not ordered:: ordered Medication administrations:: Medication Administration History Discontinued Medications Hydrocodone Bitart/Acetaminophen (Hydrocodone/Apap 5/325 Tablet) 1 tab PO X1 ONE Stop: 02/26/25 22:36 Last Admin: 02/26/25 22:39 Dose: Not Given Documented By: OA Non-Admin Reason: Change of Condition above Consultations Consultation(s) initiated? (list below): No Diagnosis Extremity Injury, Lower Differential Diagnosis: ankle sprain and strain, acute internal derangement of knee, fracture of femur, fracture of hip, puncture wound of foot, fracture of toe, ankle fracture and other (lower leg contusion, hematoma) Most likely diagnosis given after review of the tests above:: hematoma, contusion of soft tissue Admission Indicated Admission indicated?: not indicated Admission Request Was there a request for admission?: No Disposition Plan Disposition Plan: Discharge Discharge Attestation Discharge Attestation: The patient and all family members were given an opportunity to ask questions and understood the discharge instructions. Discharge instructions specifically effects, indications for sooner follow up or return to the emergency department, and the expected course of current diagnosis. Patient condition: Stable Discharge Plan Plan Patient Disposition: HOME (Self Care) Discharge Disposition comment: Stable Prescriptions/Referrals Prescriptions/Med Rec: No Action metformin 500 mg tablet Patient Comments: JOCELYNE WALLIS AL D A furosemide 20 mg tablet duloxetine 60 mg Capsule,Delayed Release(Dr/Ec) 60 mg PO QDAY Qty: 30 0RF hydrocodone-acetaminophen 5-325 mg tablet 1 tab PO Q8H MDD 3 tabs PRN (Reason: pain) Qty: 10 0RF cilostazol 100 mg tablet 100 mg PO BID Qty: 60 0RF acetaminophen-codeine 300-30 mg tablet 1 tab PO BID PRN (Reason: pain) Qty: 20 0RF Referrals: Diana Bullard, [employer] [Primary Care Provider] - In 1 week Problem List Clinical Impression: Contusion of soft tissue, Hematoma Patient/Caregiver Discharge Instructions Education Materials: ED Soft Tissue Contusion, ED Hematoma, ED Compartment Syndrome, At Risk for Additional Instructions: Please follow-up with PCP within 24-48 hours and return immediately if symptoms worsen. Watch for cold legs, numbness and lack of sensation. Print Language: Portuguese Stand Alone Forms: Patient Portal Info Letter PA/TECHNICAL ASST Supervising Physician KATY/DESMOND Supervising Physician: Dr. Mistry
[2025-02-26] MEDS: HYDROcodone/APAP 5/325 TABLET 1 TAB PO (23:39)
== END 2025-02-27 00:24 | disposition home or self-care (01) ==
PROVIDERS: Emergency Provider Emergency Medicine; PCP Nurse Practitioner Family
DX: S80.11XA Contusion of right lower leg, initial encounter (principal); W19.XXXA Unspecified fall, initial encounter
CPT/HCPCS: 73590; 99283; A9270